=== PATIENT | male | born 2000 | race Caucasian/White ===

== ENCOUNTER 2021-03-12 12:38 | Emergency (ER) | payer MEDICAID ==
[~2021-03-12] VITALS: Ht 170.2 cm; Wt 59.7 kg
[2021-03-12 12:45] VITALS: BP 116/62
[2021-03-12] MEDS ORDERED: ondansetron 4mg rapidly disintigrating tab PO ONE (15:00)
[2021-03-12] MEDS ORDERED: LIDOcaine/PRILOcaine 5gm cream TP ONE (15:00)
[2021-03-12] MEDS ORDERED: clindamycin 150mg capsule PO ONE (15:00)
[2021-03-12] MEDS ORDERED: CLIN150C8 PO (15:49)
[2021-03-12] MEDS ORDERED: bacitracin 15gm ointment TP ONE (15:50)
== END 2021-03-12 16:17 | disposition home or self-care (01) ==
LOC: ER 12:39
DX: L02.415 Cutaneous abscess of right lower limb (principal); J45.909 Unspecified asthma, uncomplicated; Z79.2 Long term (current) use of antibiotics; Z72.89 Other problems related to lifestyle
CPT/HCPCS: 10060; 99283